=== PATIENT | female | born 1980 | race Caucasian/White ===

== ENCOUNTER → 2022-02-21 | Outpatient (CLI) | payer BC ==
[~2022-02-21] MED LIST: CATHETER FLUSH 10 ML SYR IVP PRN
--- NOTE | 2022-02-21 12:41 | Diagnostic Imaging Report ---
INDICATION: Right upper quadrant pain. TECHNIQUE: The patient was administered 5.5 mCi of technetium 99m Choletec intravenously and imaging over the abdomen was performed. A 45 minutes, the patient ingested Ensure and the gallbladder ejection fraction was calculated. FINDINGS: There is homogeneous uptake of activity by the liver with prompt excretion of activity into the common duct and gallbladder. There is normal passage of activity into the small bowel. The gallbladder ejection fraction is abnormally low at 3.5%. Normal values are 35% or greater. IMPRESSION: 1. Patent cystic duct and common bile duct. 2. Abnormally low gallbladder ejection fraction of 3.5%. Dictated by: Dictated on workstation # [id number]
== END ==
LOC: CARD 10:00
PROVIDERS: ATTEND Nurse Practitioner
DX: R10.11 Right upper quadrant pain (principal)
CPT/HCPCS: 78227; A9537

== ENCOUNTER 2023-05-31 07:49 | Outpatient (CLI) | payer BC ==
[~2023-05-31] VITALS: Ht 154.9 cm; Wt 87.4 kg
[2023-05-31] MEDS ORDERED: TIRZ5PEN SQ (11:10)
== END 2023-05-31 13:33 | disposition home or self-care (01) ==
LOC: PREOP 07:49
PROVIDERS: ATTEND Surgery
DX: Z01.818 Encounter for other preprocedural examination (principal)

== ENCOUNTER 2023-06-08 07:15 | Day surgery (SDC) | payer BC ==
[~2023-06-08] VITALS: Ht 154.9 cm; Wt 87.4 kg
[2023-06-08] VITALS (10 sets, daily range): BP systolic 105–120; BP diastolic 59–71
[~2023-06-08 07:15] MED LIST changes: -CATHETER FLUSH 10 ML SYR IVP PRN; +TIRZ5PEN SQ
[2023-06-08] MEDS ORDERED: LACTATED RINGERS 1,000 ML 1,000 ML IV PRN (07:30)
[2023-06-08] MEDS ORDERED: CLINDAMYCIN 600 MG/50 ML IVPB 50 ML IV ONE (07:30)
[2023-06-08] MEDS ORDERED: LIDOCAINE 2% w/EPI 1:100,000 20 ML VIAL ONE (07:30)
--- NOTE | 2023-06-08 07:56 | Progress Note-Pre Operative ---
Pre-Operative Progress Note Date H&P Reviewed: Jun 08, 2023 Time H&P Reviewed: 07:55 History & Physical: H&P Reviewed, Patient Examed, No changes noted Pre-Operative Diagnosis: vental incisional hernia NEGRITA ZELAYA DO Jun 08, 2023 07:55
[2023-06-08] MEDS ORDERED: NEOSTIGMINE 1 MG/1ML 10 ML VIAL ONE (08:15)
[2023-06-08] MEDS ORDERED: dexAMETHasone INJ 10 MG/ML 1 ML VIAL ONE (08:15)
[2023-06-08] MEDS ORDERED: GLYCOPYRROLATE INJ 0.2 MG/ML 2 ML VIAL ONE (08:15)
[2023-06-08] MEDS ORDERED: proPOfol INJECTION 200 MG/20 ML VIAL IV ONE (08:15)
[2023-06-08] MEDS ORDERED: LIDOCAINE PF 2% 5 ML VIAL ONE (08:15)
[2023-06-08] MEDS ORDERED: ONDANSETRON INJECTION 4 MG/2 ML (SDV) ONE (08:15)
[2023-06-08] MEDS ORDERED: MIDAZOLAM INJ 2 MG/2 ML VIAL ONE (08:15)
[2023-06-08] MEDS ORDERED: ROCURONIUM 50 MG/5 ML VIAL IV ONE (08:15)
[2023-06-08] MEDS ORDERED: fentaNYL INJECTION 100 MCG/2 ML VIAL ONE (08:15)
[2023-06-08] MEDS ORDERED: PHENYLEPHRINE 100 MCG/ML 10 ML (ANESTHESIA) SYR ONE (09:01)
[2023-06-08] MEDS ORDERED: DOCU-143 PO (09:51)
[2023-06-08] MEDS ORDERED: ACHD5005 PO (09:51)
--- NOTE | 2023-06-08 09:53 | Discharge Inst-Simple/Standard ---
Discharge Inst-Standard Discharge Medications New, Converted or Re-Newed RX: Transmitted to Pharmacy Patient Instructions/Follow Up Plan of Care/Instructions/FU: 2 weeks rosamaria Activity as Tolerated: No Discharge Diet: Regular Diet Other Inst to Patient Follow up Appt: Make appointment for 2 week. Instructions: No lifting greater than 10 pounds. No strenuous activity. May shower in 24 hours, no tub bath or soaking. Use incentive spirometer at home as directed. No Smoking Skin/Wound Care: You have special glue over your incision that will fall off on it's own. Symptoms to Report: Appetite Changes, Extremity Discoloration, Numbness/Tingling, Swelling Increased, Bleeding Excessive, Eyesight Changes, Pain Increased, Urine Color Change, Constipation(Persistent), Fever over 101 degree F, Pain/Pressure in chest, Urinating Difficulty, Cough Up/Vomit Blood, Heart Beat Irreg/Pounding, Pain/Pressure in jaw, Vaginal Bleeding Increase, Cramps in feet or legs, Lightheadedness, Pain/Pressure in shoulder, Diarrhea(Persistent), Memory Changes Suddenly, Questions/Concerns, Weight gain consecutive days, Dizziness/Fainting, Nausea/Vomiting, Shortness of Breath, Weight gain over 2 pounds If questions or concerns contact your physician Or seek help at emergency department. NEGRITA ZELAYA DO Jun 08, 2023 09:53
--- NOTE | 2023-06-08 09:55 | Progress Note-Post Operative ---
Post-Operative Progess Note Surgeon (s)/Consumer Relations Complaint Clerk (s) Surgeon NEGRITA ZELAYA DO Consumer Relations Complaint Clerk: Yefri Pre-Operative Diagnosis vental incisional hernia Post-Operative Diagnosis incarcerated incisional hernia Procedure & Operative Findings Date of Procedure 06/08/23 Procedure Performed/Findings robo incarcerated incisional hernia repair Anesthesia Type general Estimated Blood Loss Estimated blood loss (mL): minimal Specimens/Packing Specimens Removed none NEGRITA ZELAYA DO Jun 08, 2023 09:55
--- NOTE | 2023-06-08 10:05 | Anesthesia-General Post-Op ---
General Patient Condition Mental Status/LOC: Same as Preop Cardiovascular: Satisfactory Nausea/Vomiting: Absent Respiratory: Satisfactory Pain: Controlled Complications: Absent Post Op Complications Complications None Follow Up Care/Instructions Patient Instructions None needed. Anesthesia/Patient Condition Patient Condition Patient is doing well in SDC. She does have a sore throat which I told her was to be expected from the ETT. Otherwise she has no complaints, stable vital signs, no apparent adverse anesthesia problems. No complications reported per nursing. MATIAS ALFORD DO Jun 08, 2023 10:05
[2023-06-08] MEDS ORDERED: SEVOFLURANE (ULTANE) 15 ML INHAL SOLN ONE (10:12)
[2023-06-08] MEDS ORDERED: ONDANSETRON INJECTION 4 MG/2 ML (SDV) IVP PRN (10:15)
[2023-06-08] MEDS ORDERED: HYDROmorphone INJECTION 2 MG/ML VIAL IV ONE (10:15)
[2023-06-08] MEDS ORDERED: morphine INJ 10 MG/ML 1ML (SYR OR VIAL) IVP ONE (10:15)
[2023-06-08] MEDS ORDERED: HYDROcodone/ACETAMINOPHEN 5 MG/325 MG TABLET ONE (10:57)
[2023-06-08] MEDS ORDERED: HYDROcodone/ACETAMINOPHEN 5 MG/325 MG TABLET PO ONE (11:00)
--- NOTE | 2023-06-09 03:55 | OPERATIVE REPORT ---
DATE OF SERVICE: 06/08/2023 PREOPERATIVE DIAGNOSIS: Incisional hernia. POSTOPERATIVE DIAGNOSIS: Incarcerated incisional hernia. SURGEON: Jaiden Salgado DO PROCEDURE: Robotic Incisional incarcerated incisional hernia repair with mesh greater than 3 cm. INDEPENDENT LIVING ADVISOR: Collins Asif DO., assisted in retraction, dissection, closure and passing instruments, utilizing the robot. INDICATIONS: The patient is a 43-year-old female with incisional hernia. She understands risks and benefits of procedure and wishes to proceed. Consent was signed in chart. DESCRIPTION OF PROCEDURE: The patient was taken to the operating suite. She was prepped and draped in sterile fashion. Timeout was performed. Local anesthetic was infiltrated in the left upper quadrant. An 11 blade scalpel was used to make a skin incision. Cautery was used to dissect down to the fascia, which was then scored. The muscle was divided and the posterior fascia was then divided. A shah trocar was inserted into the abdomen. Pneumoperitoneum was achieved. Under direct visualization of laparoscope, two 8 mm trocars were then placed on the left side of the abdomen. Robot was then docked. Hernia contents contained omental fat, which was stuck up through the incisional hernia. These were then taken down with a blunt and scissor cautery dissection. Once reduced and removed, the hernia defect was then closed using Stratafix. Hernia defect greater than 3 cm. Also, prior to putting the mesh in, the falciform ligament was then taken down partially. An echo Ventralight mesh was then inserted through a stab incision just above the hernia, which was grasped, elevated and robot was then undocked. A 5 mm trocar was placed in the right side of the abdomen and a SecureStrap tacker was used to circumferentially tack the mesh in. The balloon was removed. An inner crown was created as well. The abdomen was then desufflated. The trocars were removed. The 12 mm fascial defect was closed with 0 Vicryl in a [id number] fashion. The skin was then closed using 4-0 Monocryl in subcuticular fashion and the abdomen was washed and dried and skin Affix was placed over the incisions. The patient tolerated the procedure well without complications, taken to recovery room in stable condition. Job ID: [id number] DocumentID: [id number] Dictated Date: 06/08/2023 22:20:58 Assistant Associate Full Professor Date: 06/09/2023 03:53:00 Dictated By: DO MIHAI DARNELL
== END 2023-06-08 13:02 | disposition home or self-care (01) ==
LOC: SDC 07:15
PROVIDERS: ATTEND Surgery
DX: K43.0 Incisional hernia with obstruction, without gangrene (principal)
CPT/HCPCS: 49594; 84703; 87081; C1781